=== PATIENT | female | born 1985 | race African-American/Black ===

== ENCOUNTER 2016-12-11 10:22 | Emergency (ER) | payer OTHER ==
[~2016-12-11] VITALS: Ht 162.6 cm; Wt 100.2 kg
[2016-12-11 10:30] VITALS: BP 122/70
[2016-12-11] MEDS ORDERED: KETOROLAC TROMETHAMINE 60 MG/2 ML INJ. IM ONE (11:00)
[2016-12-11] MEDS ORDERED: PROMETHAZINE IM 25 MG/ML VIAL IM ONE (11:00)
[2016-12-11] MEDS ORDERED: diphenhydrAMINE 50 MG/ML VIAL IM ONE (11:00)
[2016-12-11] MEDS ORDERED: PROM25TA10 PO (11:01)
--- NOTE | 2016-12-11 11:02 | PHYS DOC ---
Past Medical History Past Medical History: Hypertension, Migraines Past Surgical History: Alcohol Use: Occasionally Drug Use: None Adult General Chief Complaint Chief Complaint: HEADACHE HPI HPI Patient is a 31 year old female with history of hypertension and migraine headaches who presents today with 8 out of 10 left frontal migraine headache described as throbbing worse with noise and lights that began yesterday, patient is also complaining of nausea with no vomiting. She denies this being the worst headache in her life. She states she's had similar headaches before. She states she follows up with [facility] and they normally give her migraine headache cocktail. She states she also follows up with a neurologist at [facility]. Patient denies any chance she is . Review of Systems Review of Systems Constitutional: Denies fever or chills [] Eyes: Denies change in visual acuity, redness, or eye pain [] HENT: Denies nasal congestion or sore throat [] Respiratory: Denies cough or shortness of breath [] Cardiovascular: No additional information not addressed in HPI [] GI: Denies abdominal pain, nausea, vomiting, bloody stools or diarrhea [] : Denies dysuria or hematuria [] Musculoskeletal: Denies back pain or joint pain [] Integument: Denies rash or skin lesions [] Neurologic: Migraine headache Endocrine: Denies polyuria or polydipsia [] Current Medications Current Medications Current Medications Medications (Trade) Dose Ordered Sig/Leonora Start Time Stop Time Status Last Admin Dose Admin Diphenhydramine HCl (Benadryl) 25 mg 1X ONCE 12/11/16 11:00 12/11/16 11:01 Ketorolac Tromethamine (Toradol Im) 60 mg 1X ONCE 12/11/16 11:00 12/11/16 11:01 Promethazine HCl (Phenergan Im) 25 mg 1X ONCE 12/11/16 11:00 12/11/16 11:01 Allergies Allergies Allergies Coded Allergies Type Severity Reaction Last Updated Verified No Known Drug Allergies 12/11/16 No Physical Exam Physical Exam Constitutional: Well developed, well nourished, no acute distress, non-toxic appearance. [] HENT: Normocephalic, atraumatic, bilateral external ears normal, oropharynx moist, no oral exudates, nose normal. [] Eyes: PERRLA, EOMI, conjunctiva normal, no discharge. [] Neck: Normal range of motion, no tenderness, supple, no stridor. [] Cardiovascular:Heart rate regular rhythm, no murmur [] Lungs & Thorax: Bilateral breath sounds clear to auscultation [] Abdomen: Bowel sounds normal, soft, no tenderness, no masses, no pulsatile masses. [] Skin: Warm, dry, no erythema, no rash. [] Back: No tenderness, no CVA tenderness. [] Extremities: No tenderness, no cyanosis, no clubbing, ROM intact, no edema. [] Neurologic: Alert and oriented X 3, normal motor function, normal sensory function, no focal deficits noted. Cranial nerves II through XII intact Psychologic: Affect normal, judgement normal, mood normal. [] Current Patient Data Vital Signs Vital Signs Date Time Temp Pulse Resp B/P (MAP) Pulse Ox O2 Delivery O2 Flow Rate FiO2 12/11/16 10:30 98.2 82 18 122/70 (87) 97 Room Air 98.2 EKG EKG [] Radiology/Procedures Radiology/Procedures [] Course & Med Decision Making Course & Med Decision Making Pertinent Labs and Imaging studies reviewed. (See chart for details) This is a 31-year-old female who presents today with a migraine headache since yesterday. Patient has history of similar migraine headaches. She follows up with a Neurologist at [facility] and usually goes to [facility] for her migraine headaches, she states she normally gets a cocktail. We gave her Toradol, Promethazine and Benadryl IM in the ED. Recommended she follows up with her own neurologist on Monday. She was provided return precautions and discharged in stable condition. Dragon Disclaimer Dragon Disclaimer This electronic medical record was generated, in whole or in part, using a voice recognition dictation system. Departure Departure Impression: Primary Impression: Migraine headache Disposition: HOME, SELF-CARE Condition: STABLE Referrals: SHER MIN (PCP) Follow-up with your own doctor on Monday Patient Instructions: Migraine Headache, [id number] Additional Instructions: You were seen for migraine headache in the emergency room. Follow-up with your own doctor on Monday. Come back to the ED if symptoms worsen. Continue taking your home medicine as previously prescribed by your doctors. Scripts Promethazine Hcl (PROMETHAZINE HCL) 25 Mg Tablet 1 TAB PO PRN Q6HRS, #20 TAB Prov: RAHEEM SCOTT APRN 12/11/16 Problem Qualifiers Primary Impression: Migraine headache Migraine type: without aura Status migrainosus presence: without status migrainosus Intractability: not intractable Qualified Codes: G43.009 - Migraine without aura, not intractable, without status migrainosus RAEHEM SCOTT APRN Dec 11, 2016 11:02
== END 2016-12-11 11:31 | disposition home or self-care (01) ==
LOC: ER 10:22
DX: G43.909 Migraine, unspecified, not intractable, without status migrainosus (principal); I10 Essential (primary) hypertension
CPT/HCPCS: 96372; 99284; J1200; J1885; J2550